=== PATIENT | female | born 1975 | race Caucasian/White ===

== ENCOUNTER 2018-10-16 01:18 | Emergency (ER) | payer OTHER ==
[~2018-10-16] VITALS: Ht 172.7 cm; Wt 90.7 kg
[2018-10-16 01:23] VITALS: Ht 172.7 cm; Wt 90.7 kg
[2018-10-16 02:53] VITALS: BP 136/80
== END 2018-10-16 02:53 | disposition home or self-care (01) ==
LOC: ED 01:18
DX: K59.00 Constipation, unspecified (principal); Z98.51 Tubal ligation status; Z98.890 Other specified postprocedural states
CPT/HCPCS: J1885